=== PATIENT | male | born 1980 | race Caucasian/White ===

== ENCOUNTER 2019-11-04 18:18 | Emergency (ER) | payer BC ==
[~2019-11-04] VITALS: Ht 182.8 cm; Wt 131.5 kg
[~2019-11-04 18:18] MED LIST: ANAPROX DS550 MG PO; COMPAZINE10 MG PO; DAYPRO600 M1 PO; KEFLEX500 MG PO; ZANTAC150 MG PO
[2019-11-04] MEDS ORDERED: ZITHROMAX250 MG PO (20:30)
== END 2019-11-04 20:43 | disposition home or self-care (01) ==
LOC: ED 18:18
DX: J40 Bronchitis, not specified as acute or chronic (principal); I10 Essential (primary) hypertension; F17.200 Nicotine dependence, unspecified, uncomplicated; Z88.8 Allergy status to other drugs, medicaments and biological substances; Z88.2 Allergy status to sulfonamides

== ENCOUNTER → 2019-11-07 | Outpatient (CLI) | payer BC ==
[~2019-11-07] MED LIST changes: +ZITHROMAX250 MG PO
== END | disposition home or self-care (01) ==
LOC: COVID19 09:55
PROVIDERS: ATTEND Internal Medicine
DX: R06.02 Shortness of breath (principal); Z20.828 Contact with and (suspected) exposure to other viral communicable diseases

== ENCOUNTER 2020-11-15 21:22 | Emergency (ER) | payer BC ==
[~2020-11-15] VITALS: Ht 182.8 cm; Wt 122.5 kg
[2020-11-15] MEDS ORDERED: METFORMIN HYDR500 MG PO (21:30)
[2020-11-15] MEDS ORDERED: SYNTHROID,LEV125 MCG PO (21:31)
== END 2020-11-15 22:18 | disposition left against medical advice (07) ==
LOC: ED 21:22
DX: R06.02 Shortness of breath (principal); F17.200 Nicotine dependence, unspecified, uncomplicated; Z88.1 Allergy status to other antibiotic agents; Z79.899 Other long term (current) drug therapy